=== PATIENT | female | born 1990 | race Asian ===

== ENCOUNTER 2018-02-20 10:43 | Inpatient (IN) | payer SELFPAY ==
[~2018-02-20] VITALS: Ht 158 cm; Wt 67.1 kg
[2018-02-20] MEDS ORDERED: LR 1,000 ML IV ONE (10:59)
[2018-02-20] MEDS ORDERED: CEFAZOLIN 2 GM IVPB PREMIX 50 ML IV ONE (11:00)
[2018-02-20 11:32] LABS: MEAN CORPUSCULAR HGB CONC 32 % (32-36); MEAN CORPUSCULAR VOLUME 94 fL (79.0-98.0)
[2018-02-20] MEDS ORDERED: LR 1,000 ML IV SCH ×2 (11:40→14:50)
[2018-02-20] MEDS ORDERED: NALOXONE HCL 1 MG in NACL 0.9% 1,000 ML IV PRN ×4 (11:40)
[2018-02-20 11:41] LABS: LYMPHOCYTES % (AUTO) 30.4 % (20.5-51.5)
[2018-02-20 11:42] LABS: BASOPHILS % (AUTO) 0.3 % (0.0-2.0); EOSINOPHILS % (AUTO) 0.2 % (0.0-4.0); LYMPHOCYTES # (AUTO) 1.9 K/uL (1.0-5.5); MONOCYTES # (AUTO) 0.6 K/uL (0.0-1.0); MONOCYTES % (AUTO) 9.1 % (1.7-9.3); NEUTROPHILS # (AUTO) 3.7 K/uL (1.8-7.7); WHITE BLOOD COUNT (AUTO) 6.2 K/uL (4.8-10.8)
[2018-02-20 11:43] LABS: HEMATOCRIT 41.1 % (36-48); HEMOGLOBIN 13.3 g/dL (12.0-16.0); MEAN CORPUSCULAR HEMOGLOBIN 30 pg (27-31); PLATELET COUNT (AUTO) 150 K/uL (130-430); RED BLOOD CELL COUNT(AUTO) 4.39 MIL/uL (4.2-6.2); RED CELL DISTRIBUTION WIDTH 12.8 % (9.0-15.0)
[2018-02-20] MEDS ORDERED: HYDROmorphone 2 MG/ML VIAL IVP PRN ×2 (11:45)
[2018-02-20] MEDS ORDERED: ONDANSETRON HCL 4 MG/2 ML VIAL IVP PRN (11:45)
[2018-02-20] MEDS ORDERED: DIPHENHYDRAMINE INJ 50 MG/ML VIAL IVP PRN (11:45)
[2018-02-20] MEDS ORDERED: MEPERIDINE HCL/PF 25 MG/ML DISP.SYRIN IVP PRN ×2 (11:45)
[2018-02-20] MEDS ORDERED: HYDROmorphone 1 MG INJ. 1 MG/ML AMPUL IVP PRN (11:45)
[2018-02-20] MEDS ORDERED: DIPHENHYDRAMINE HCL 50 MG CAPSULE PO PRN (11:45)
[2018-02-20] MEDS ORDERED: NALOXONE HCL 0.4 MG/ML AMP (NARCAN) IVP PRN ×3 (11:45)
[2018-02-20] MEDS ORDERED: KETOROLAC TROMETHAMINE 60 MG/2 ML VIAL IM PRN (11:45)
[2018-02-20] MEDS ORDERED: METHYLERGONOVINE MALEATE 0.2 MG/ML AMP ONE (13:20)
[2018-02-20] MEDS ORDERED: LR 1,000 ML IV.SOLN IV ONE (13:20)
[2018-02-20] MEDS ORDERED: MORPHINE SULFATE 10MG/10ML PF AMP ONE (13:20)
[2018-02-20] MEDS ORDERED: ONDANSETRON HCL 4 MG/2 ML VIAL ONE (13:20)
[2018-02-20] MEDS ORDERED: OXYTOCIN/0.9 % SODIUM CHLORIDE 1,000 ML IV ONE (14:50)
[2018-02-20 14:56] VITALS: BP_SYST 117
[2018-02-20] MEDS ORDERED: SIMETHICONE 80 MG TAB.CHEW PO PRN (15:00)
[2018-02-20] MEDS ORDERED: LANOLIN 7 GM OINT. TP PRN (15:00)
[2018-02-20] MEDS ORDERED: DOCUSATE SODIUM 100 MG CAPSULE PO PRN (15:00)
[2018-02-20] MEDS ORDERED: DIPH-TET-PERTUS Vaccine 0.5 ML VIAL (ADACEL) I.M. PRN (15:00)
[2018-02-20] MEDS ORDERED: MEASLES,MUMPS&RUBELLA VACC/PF 12500 UNIT/0.5 ML VIAL SUBQ PRN (15:00)
[2018-02-20] MEDS ORDERED: BISACODYL 10 MG/SUPPOSITORY RC PRN (15:00)
[2018-02-20] MEDS ORDERED: RHO(D) IMMUNE GLOBULIN/MALTOSE 1500 UNITS/1.3 ML (WINHRO) IM PRN (15:00)
[2018-02-20] MEDS ORDERED: SENNOSIDES/DOCUSATE SODIUM 1 TAB TABLET(SENOKOT-S) PO PRN (15:00)
[2018-02-20] MEDS ORDERED: ANUSOL 1 EA SUPP.RECT (PREPARATION H) RC PRN (15:00)
[2018-02-20] MEDS ORDERED: KETOROLAC TROMETHAMINE 30 MG VIAL IVP PRN (18:00)
[2018-02-20] MEDS: CEFAZOLIN 1 GM IVPB PREMIX 50 ML IV SCH (18:00)
[2018-02-21] MEDS: KETOROLAC TROMETHAMINE 30 MG VIAL IVP SCH ×2 (00:33→05:36)
[2018-02-21] MEDS: CEFAZOLIN 1 GM IVPB PREMIX 50 ML IV SCH ×2 (00:33→05:36)
[2018-02-21] MEDS: IBUPROFEN 600 MG TABLET PO SCH ×4 (05:37→23:56)
[2018-02-21 07:50] LABS: BASOPHILS % (AUTO) 0.5 % (0.0-2.0); HEMATOCRIT 32.5 % (36-48); HEMOGLOBIN 10.5 g/dL (12.0-16.0); LYMPHOCYTES # (AUTO) 1.3 K/uL (1.0-5.5); LYMPHOCYTES % (AUTO) 13.6 % (20.5-51.5); MEAN CORPUSCULAR HEMOGLOBIN 30 pg (27-31); MEAN CORPUSCULAR HGB CONC 32 % (32-36); MEAN CORPUSCULAR VOLUME 94 fL (79.0-98.0); MONOCYTES # (AUTO) 0.5 K/uL (0.0-1.0); MONOCYTES % (AUTO) 5.6 % (1.7-9.3); NEUTROPHILS # (AUTO) 7.7 K/uL (1.8-7.7); NEUTROPHILS % (AUTO) 80.3 % (40.0-70.0); PLATELET COUNT (AUTO) 147 K/uL (130-430); RED BLOOD CELL COUNT(AUTO) 3.45 MIL/uL (4.2-6.2); RED CELL DISTRIBUTION WIDTH 12.7 % (9.0-15.0); WHITE BLOOD COUNT (AUTO) 9.5 K/uL (4.8-10.8)
[2018-02-21] MEDS ORDERED: OXYCODONE/ACETAMINOPHEN 5-325 TABLET PO PRN (08:30)
[2018-02-22] MEDS: IBUPROFEN 600 MG TABLET PO SCH ×2 (06:05→12:00)
== END 2018-02-22 16:50 | disposition home or self-care (01) | DRG 788 ==
LOC: SPU 10:43
PROVIDERS: ADMIT Obstetrics & Gynecology; ATTEND Obstetrics & Gynecology
PROC: 10D00Z1 Extraction of Products of Conception, Low, Open Approach (ICD-10-PCS; principal; 2018-02-20 12:15)
DX: O36.63X0 Maternal care for excessive fetal growth, third trimester, not applicable or unspecified (principal); Z3A.40 40 weeks gestation of pregnancy; Z37.0 Single live birth
CPT/HCPCS: 36415; 85025; 86886; 86900; 86901; 87536; 90656; 90715; 94760; J0690; J1885; J2210; J2274; J2310; J2405; J2590; J7030; J7120